=== PATIENT | male | born 2000 | race Caucasian/White ===

== ENCOUNTER 2019-07-01 13:19 | Outpatient (CLI) | payer BC ==
--- NOTE | 2019-07-01 13:50 | CT ---
Exam: Abdomen CT without contrast Pelvic CT without contrast HISTORY: Left flank pain. Hematuria. COMPARISON: None FINDINGS: Abdomen CT: Lung bases:Clear Heart size: Normal heart size. No significant pericardial fluid Aorta: Normal caliber. No periaortic fat stranding Solid organs: Limited evaluation due to lack of IV contrast. Grossly no solid organ abnormality. Lymph nodes: No gastrohepatic, retrocrural or periportal lymphadenopathy Gallbladder: Unremarkable Mesentery: No mass, lymphadenopathy, free air or free fluid Kidneys: There are nonobstructing calculi in the right renal pelvis. Development Professional calculus measures 0.6 cm. No evidence of right sided obstructive uropathy. Mild to moderate dilatation of the left intrarenal collecting system and proximal to mid left ureter. There is a 0.8 cm obstructing calculus in the left ureter at the L3-L4 disc space level. Distally, the left ureter is decompressed. Alimentary canal: Limited evaluation due to lack of oral contrast administration. No evidence of smal l bowel obstruction. Ileocecal junction is unremarkable. Normal caliber air-filled appendix. Decompressed colon with scattered fecal material. Occasional diverticulum. No diverticulitis. CT PELVIS: No mass, adenopathy, free air or free fluid. Urinary bladder: Unremarkable. Osseous structures: No acute abnormalities. Nonspecific endplate irregularities involving the distal thoracic spine. IMPRESSION: 1. Moderate left-sided obstructive uropathy secondary to a 0.8 cm calculus in the left ureter. 2. Nonobstructing calculi in the right renal pelvis. CODE T
== END 2019-07-01 13:20 | disposition home or self-care (01) ==
LOC: CT 13:19
PROVIDERS: ATTEND Internal Medicine Nephrology
DX: R31.9 Hematuria, unspecified (principal); N20.2 Calculus of kidney with calculus of ureter; N13.9 Obstructive and reflux uropathy, unspecified
CPT/HCPCS: 74176